=== PATIENT | female | born 1955 | race Caucasian/White ===

== ENCOUNTER → 2016-07-05 | Outpatient (CLI) | payer OTHER | LOC: FIMAGING 13:54 | DX: Z12.31 Encounter for screening mammogram for malignant neoplasm of breast (principal); Z80.3 Family history of malignant neoplasm of breast | CPT/HCPCS: G0202 ==

== ENCOUNTER 2017-03-26 20:48 | Emergency (ER) | payer OTHER ==
[2017-03-26 21:07] VITALS: BP 158/88; PULSE 88; RESP 18; TEMP 99.1; O2SAT 96
[2017-03-26] MEDS ORDERED: AZITHROMYCIN 250 MG TAB PO ONE (21:20)
[2017-03-26] MEDS ORDERED: HYDROCOD/APAP 5/325 PREPACK#6 BTL TAKEHOME ONE (21:21)
--- NOTE | 2017-03-26 21:25 | EDPHY ---
H & P Time Seen by Provider: 03/26/17 21:09 HPI/ROS: CHIEF COMPLAINT: Right ear pain HISTORY OF PRESENT ILLNESS: 62-year-old female who is been ill for a week with sore throat, nasal congestion, and dry cough developed right ear pain yesterday. Pain was quite severe last night. She is found minimal relief with ibuprofen and Tylenol. Patient did use some [id number] otic drops which she felt like made the pain worse. This afternoon the pain increased again and the patient was unable to reach her primary care provider. No definitive fever. No chills. Dry cough with no sputum. No shortness of breath or chest pain. No vomiting or diarrhea. No headache. Patient has been using Flonase nasal spray for nasal congestion as well as ibuprofen, Tylenol, salt water gargles, and saline nasal flushes. REVIEW OF SYSTEMS: Aside from elements discussed in the HPI, a comprehensive 10-point review of systems was reviewed and is negative. PAST MEDICAL HISTORY: Patient denies. No history of hypertension, or diabetes. SOCIAL HISTORY: . Nonsmoker. VITAL SIGNS: see nurse's notes. GENERAL: Well-developed, well-nourished, holding her right ear. Complaining of ear discomfort. Sounds very congested. HEENT: Atraumatic Eyes: PERRL, EOMI, no conjunctival injection. Ears: Right tympanic membrane is bulging, erythematous. Left tympanic membrane is normal. Nose: No discharge. Mouth: moist mucous membranes. Pharynx: Mild posterior erythema, tonsils are slightly enlarged. No exudates Uvula is midline. NECK: Supple, no adenopathy, no meningismus, no tenderness. LUNGS: Clear to auscultation bilaterally, no wheezes, rhonchi or rales. CARDIAC: Regular rate and rhythm, no rubs, murmurs or gallops. ABDOMEN: Benign. EXTREMITIES: Normal, no edema, FROM. NEURO: Alert and oriented, grossly nonfocal. SKIN: Warm and dry, no rash. PSYCHIATRIC: Normal mentation, no agitation. Smoking Status: Never smoked Constitutional: Initial Vital Signs Temperature (C) 37.3 C 03/26/17 21:04 Heart Rate 88 03/26/17 21:04 Respiratory Rate 18 03/26/17 21:04 Blood Pressure 158/88 H 03/26/17 21:04 O2 Sat (%) 96 03/26/17 21:04 O2 Delivery Mode Room Air Allergies/Adverse Reactions: Penicillins Allergy (Intermediate, Verified 03/26/17 21:03) Rash Home Medications: Medication Instructions Recorded Azithromycin [Zithromax] 250 mg PO DAILY #4 tab 03/26/17 Celexa 03/26/17 MDM/Departure - MDM Medications Given: Discontinued Medications Hydrocodone Bitart/Acetaminophen ([place] 5/325mg Prepack#6) 1 btl TAKEHOME EDNOW ONE Stop: 03/26/17 21:22 Last Admin: 03/26/17 21:33 Dose: 1 btl Azithromycin (Zithromax) 500 mg PO EDNOW ONE PRN Reason: Protocol Stop: 03/26/17 21:21 Last Admin: 03/26/17 21:33 Dose: 500 mg ED Course/Re-evaluation: Patient is allergic to penicillins. She was given azithromycin to treat her otitis media. We discussed importance of decongestants. She has already been using Flonase nasal spray, and taking Claritin as an antihistamine. Discharged with a prepack of hydrocodone to use as needed for severe discomfort. Follow-up as needed. Differential Diagnosis: Differential diagnosis for the patient's primary complaint was considered including but not limited to otitis media, otitis externa, foreign body, perforated tympanic membrane. - Depart Disposition: Home, Routine, Self-Care Clinical Impression: Otitis media Qualifiers: Otitis media type: unspecified Chronicity: acute Qualified Code(s): H66.90 - Otitis media, unspecified, unspecified ear Upper respiratory infection Qualifiers: URI type: unspecified URI Qualified Code(s): J06.9 - Acute upper respiratory infection, unspecified Condition: Good Instructions: Hydrocodone/Acetaminophen (By mouth), Otitis Media (ED) Additional Instructions: Continued to use Tylenol and ibuprofen for pain, Flonase nasal spray to help with nasal congestion, obtain an oral decongestant such as Sudafed as well, and consider using Afrin nasal spray for 1-2 days only at night to help with nasal congestion. You will not be able to clear your ear infection without the use of decongestants as well. Please take azithromycin as directed. 250 mg each evening for the next 4 evening starting tomorrow. You may take hydrocodone as needed for severe pain especially at night. Lastly, if the topical ear drops cause increased pain, do not use them. Prescriptions: Azithromycin [Zithromax] 250 mg PO DAILY #4 tab Referrals: Cora Doan MD [Primary Care Provider] - As per Instructions
== END 2017-03-26 21:44 | disposition home or self-care (01) ==
LOC: CED 20:48
DX: H66.91 Otitis media, unspecified, right ear (principal); J06.9 Acute upper respiratory infection, unspecified

== ENCOUNTER → 2017-08-02 | Outpatient (CLI) | payer OTHER | LOC: FIMAGING 08:00 | PROVIDERS: ATTEND Internal Medicine | DX: Z12.31 Encounter for screening mammogram for malignant neoplasm of breast (principal) ==

== ENCOUNTER → 2018-08-05 | Outpatient (CLI) | payer OTHER | LOC: FIMAGING 15:19 | PROVIDERS: ATTEND Internal Medicine | DX: Z12.31 Encounter for screening mammogram for malignant neoplasm of breast (principal) ==